=== PATIENT | male | born 1965 | race Caucasian/White ===

== ENCOUNTER 2025-01-10 | Outpatient (REF) | payer BC, SELFPAY | END 2025-01-10 00:01 | disposition home or self-care (01) | LOC: HO.LAB | PROVIDERS: Visit Provider Urology | DX: Z13.9 Encounter for screening, unspecified (principal); R97.20 Elevated prostate specific antigen [PSA] | CPT/HCPCS: 81003 ==

== ENCOUNTER 2025-01-10 10:28 | Outpatient (AMB) | payer BC, SELFPAY ==
--- NOTE | 2025-01-10 10:29 | MHC.OFFVIS ---
Intake Visit Reasons: elevated PSA Intake Note: Patient is present for ELEVATED PSA Urology Medication:NONE Antibiotic Allergy:NONE Blood Thinner:NONE Supervisor [employer] Required: No Allergies No Known Allergies Allergy (Verified 01/10/25 10:29) HPI Comments Details: Hayden is a pleasant male. He is a patient of . He seen for the following urologic conditions - elevated PSA Long discussion today regarding PSA testing, PSA thresholds, Baysian approach to prostate cancer risk management Will repeat PSA today Is interested in ExoDX urine testing - order placed Elevated PSA PSA - 03/23 3.8, 06/22 4.3 Father did have simple prostatectomy age 70 which had small volume, low-grade disease. Procedure was performed for urinary symptoms Recent prostate MRI - per report 50 g prostate, PI-RADS 2 lesion (probability of clinically significant prostate cancer less than 10%) [facility] Medical History (Updated 01/10/25 @ 11:10 by Broderick Cortez MD) Elevated PSA Thyroid disease Syncope Acute insomnia Bursitis Anaphylaxis Allergic rhinitis ADD (attention deficit disorder) Depression Migraine Surgical History (Updated 01/04/25 @ 13:25 by Flakita Guzman Olinda) History of vasectomy History of colonoscopy Review of Systems Const Denies chills and Denies fever(s) Card Reports no additional complaints and Denies syncope Resp Denies cough GI Denies abdominal pain and Denies heartburn Reports as per HPI and Denies change in libido Neuro Denies syncope Psych Denies change in libido Endo Denies change in libido Physical Exam Const General: cooperative, healthy appearing, comfortable and no acute distress Orientation/consciousness: patient oriented x3 HEENT Face and sinus: Yes normal facial exam Mouth: moist mucous membranes Neck Neck: Yes normal visual inspection, Yes full ROM and Yes trachea midline Chest Chest palpation & inspection: normal inspection of the chest Resp Effort & Inspection: normal respiratory effort, able to speak in complete sentences and no respiratory distress GI Inspection: Yes normal to inspection Back/Spine/Pelvis Cervical Spine: normal cervical lordosis Thoracic/Lumbar Spine: thoracic and lumbar spine normal to inspection Skin General skin exam: no rashes or lesions noted Neuro General: patient oriented x3, gait normal, tone normal and moves all extremities Extrem General: Yes normal to inspection and Yes capillary refill normal Results AMB Urinalysis, Automated UA Leukoctes 0 Ysabel/uL Last Edit by AMANDO Vyas on 01/10/25 10:45 UA Nitrite Negative Last Edit [facility] on 01/10/25 10:45 UA Urobilinogen 3.5 mg/dL Last Edit by AMANDO Vyas on 01/10/25 10:45 UA Protein 15 mg/dL Last Edit by AMANDO Vyas on 01/10/25 10:45 UA pH 5.5 Last Edit by Jonathon Stanley [facility] on 01/10/25 10:45 UA Blood 25 John/uL Last Edit by Jonathon Stanley [facility] on 01/10/25 10:45 UA Specific [place] 1.030 Last Edit by Jonathon [facility] on 01/10/25 10:45 UA Ketone Positive Last Edit by Jonathon Stanley [facility] on 01/10/25 10:45 UA Bilirubin 0 mg/dL Last Edit by Jonathon [facility] on 01/10/25 10:45 UA Glucose 0 mg/dL Last Edit by Jonathon Stanley [facility] on 01/10/25 10:45 Results Reviewed Results Reviewed: Laboratory Last Values Urine pH (Auto) 5.5 01/10/25 10:44 Specific [place] (Auto) 1.030 01/10/25 10:44 Urine Protein (Auto) 15 mg/dL 01/10/25 10:44 Glucose (UA)(Auto) 0 mg/dL 01/10/25 10:44 Urine Ketones (Auto) Positive 01/10/25 10:44 Urine Blood (Auto) 25 John/uL 01/10/25 10:44 Urine Nitrite (Auto) Negative 01/10/25 10:44 Urine Bilirubin (Auto) 0 mg/dL 01/10/25 10:44 Urine Urobilinogen (Auto) 3.5 mg/dL 01/10/25 10:44 Leukocyte Esterase (Auto) 0 Ysabel/uL 01/10/25 10:44 Assessment & Plan Assessment & Plan (1) Elevated PSA: Code(s): R97.20 - Elevated prostate specific antigen [PSA] Category: Medical Plan PSA, ExoDX Orders: Orders AMB Urinalysis Automated Today Z13.9 - Encounter for screening, unspecified PSA,Total (Free>4and<10) Today R97.20 - Elevated prostate specific antigen [PSA] Patient Instructions: This note is constructed using voice recognition software. While every effort has been made to ensure accuracy ramp supervisor errors may have been included. Imaging studies, laboratory and physical exam results were discussed and reviewed in detail. No major barriers to patient understanding were identified. An opportunity to ask questions regarding the treatment plan was provided. All questions were answered. The patient expressed understanding and agreement with the above treatment plan. The patient is aware they should contact our office by phone for worsening of their current condition or the appearance of new urologic symptoms. Compliance is encouraged with any medications and followup testing that is ordered. It is a privilege to participate in the urologic care of your patient. If you have any questions or concerns regarding treatment for the above conditions, or other urologic issues, please do not hesitate to contact me. The office telephone contact is [phone]. Sincerely, Dr Broderick Cortez MD, [facility] - Urology Compassionate Specialist Care for the Genitourinary System Coding Level of Care Code New Pt Level 4 (06253) Diagnoses Elevated PSA R97.20
== END 2025-01-10 11:18 | disposition home or self-care (01) ==
PROVIDERS: PCP Nurse Practitioner Family; Visit Provider Urology
DX: R97.20 Elevated prostate specific antigen [PSA] (principal); Z13.9 Encounter for screening, unspecified
CPT/HCPCS: 99204

== ENCOUNTER 2025-01-10 11:57 | Outpatient (REF) | payer BC, SELFPAY ==
[2025-01-10 13:57] LABS: PSA,Total (Free>4and<10) 4.84 ng/mL (0.00-4.00)
[2025-01-11 13:03] LABS: Free Prostate Spec Ag 1.2 ng/mL; Percent Free Prostate Spec Ag 24 % (calc) (>25); Prostate Specific Ag Total 4.9 ng/mL (< OR = 4.0)
== END 2025-01-10 11:58 | disposition home or self-care (01) ==
LOC: HO.10HDL 11:57
PROVIDERS: Visit Provider Urology
DX: R97.20 Elevated prostate specific antigen [PSA] (principal); Z12.5 Encounter for screening for malignant neoplasm of prostate
CPT/HCPCS: 36415; 84153; 84154

== ENCOUNTER 2025-03-17 10:51 | Outpatient (AMB) | payer BC, SELFPAY ==
--- NOTE | 2025-03-17 10:51 | MHC.OFFVIS ---
Intake Visit Reasons: 6w/PSA Intake Note: Pt presents as a telehealth visit for a 6 week follow up/PSA. Allergies No Known Allergies Allergy (Verified 03/17/25 10:52) HPI Comments Details: Hayden is a pleasant male. He is a patient of . He seen for the following urologic conditions - elevated PSA Telemedicine Evaluation 15 min Consultation [employer] Avinash Video Discussed PSA and free PSA. Risk calculator indicates 3% probability clinically significant prostate cancer. Link to Risk calculator sent to patient Six-month follow-up repeat PSA Prior discussion regarding PSA testing, PSA thresholds, Baysian approach to prostate cancer risk management Elevated PSA PSA - 03/23 3.8, 06/22 4.3, 01/24 4.9 24% Father did have simple prostatectomy age 70 which had small volume, low-grade disease. Procedure was performed for urinary symptoms Recent prostate MRI - per report 50 g prostate, PI-RADS 2 lesion (probability of clinically significant prostate cancer less than 10%) PFSH Medical History Elevated PSA Thyroid disease Syncope Acute insomnia Bursitis Anaphylaxis Allergic rhinitis ADD (attention deficit disorder) Depression Migraine Surgical History History of vasectomy History of colonoscopy Review of Systems Const All systems reviewed & are unremarkable except as noted in HPI and below Reports no additional complaints Resp Reports no additional complaints GI Reports no additional complaints Reports as per HPI Musc Reports no additional complaints Physical Exam Telemedicine evaluation Appropriate responses Regular breathing rate and rhythm HEENT Head: Yes normal to inspection Ears: hearing grossly normal bilaterally Eyes General: appearance normal, both eyes and all related structures Neck Neck: Yes normal visual inspection Chest Chest palpation & inspection: normal inspection of the chest Resp Effort & Inspection: normal respiratory effort and able to speak in complete sentences Telehealth Telehealth Telehealth Platform: Incentive Targeting Location of provider rendering services: practice address Location of patient: address on file Patient Identification confirmed using: Name, : Yes Telehealth method: video Patient verbally consented to treatment: Yes Patient verbally consented to billing insurance company: Yes Patient informed of any privacy concerns related to visit: Yes Minutes spent on Phone/Video with Pt.: 15 Assessment & Plan Assessment & Plan (1) Elevated PSA: Code(s): R97.20 - Elevated prostate specific antigen [PSA] Category: Medical Plan 6m f/u PSA office Patient Instructions: This note is constructed using voice recognition software. While every effort has been made to ensure accuracy investigations director errors may have been included. Imaging studies, laboratory and physical exam results were discussed and reviewed in detail. No major barriers to patient understanding were identified. An opportunity to ask questions regarding the treatment plan was provided. All questions were answered. The patient expressed understanding and agreement with the above treatment plan. The patient is aware they should contact our office by phone for worsening of their current condition or the appearance of new urologic symptoms. Compliance is encouraged with any medications and followup testing that is ordered. It is a privilege to participate in the urologic care of your patient. If you have any questions or concerns regarding treatment for the above conditions, or other urologic issues, please do not hesitate to contact me. The office telephone contact is [phone]. Sincerely, Dr Broderick Cortez MD, [facility] - Urology Compassionate Specialist Care for the Genitourinary System Coding Level of Care Code Tele Est Pt Level 3 (97030) Complex EM visit Add On G2211 Diagnoses Elevated PSA R97.20
== END 2025-03-17 12:16 | disposition home or self-care (01) ==
LOC: HO.HUSH 10:51
PROVIDERS: PCP Nurse Practitioner Family; Visit Provider Urology
DX: R97.20 Elevated prostate specific antigen [PSA] (principal)
CPT/HCPCS: 99213